=== PATIENT | female | born 1985 | race Hispanic/Latino ===

== ENCOUNTER 2020-06-25 23:11 | Emergency (ER) | payer SELFPAY ==
[~2020-06-25] VITALS: Ht 162.6 cm; Wt 55.3 kg
[2020-06-25] MEDS ORDERED: DEXAMETHASONE 4 MG TAB PO STA (23:27)
[2020-06-25] MEDS ORDERED: PREDNISONE 20 MG TAB PO ONE (23:45)
[2020-06-25] MEDS ORDERED: PREDNISONE 20 MG TAB ONE (23:52)
[2020-06-26] MEDS ORDERED: PREDNISONE20 MG PO (00:14)
[2020-06-26] MEDS ORDERED: VENTOLIN HFA18 GM INH (00:14)
[2020-06-26 01:08] VITALS: BP 140/90
== END 2020-06-26 01:08 | disposition home or self-care (01) ==
LOC: FSED 23:28
DX: R07.9 Chest pain, unspecified (principal); R42 Dizziness and giddiness
CPT/HCPCS: 71046; 93005; 99283; J7512; J8540